=== PATIENT | female | born 1940 | race Caucasian/White ===

== ENCOUNTER → 2016-11-12 | Outpatient (CLI) | payer MEDICARE, OTHER ==
--- NOTE | 2016-11-12 11:19 | MM ---
Reason for exam: additional evaluation requested from prior study. Last mammogram was performed 1 year ago. History: Patient is postmenopausal, has history of breast cancer at age 63, and had previous chest radiation therapy at age 63. Excisional biopsy of the left breast, 2003. Malignant lumpectomy of the left breast, 2003. Radiation therapy of the left breast, 2003. Took tamoxifen for 5 years beginning at age 63. Physical Findings: Nurse did not find any significant physical abnormalities on exam. MG Diagnostic Mammo w CAD FE Bilateral CC and MLO view(s) were taken. Prior study comparison: November 12, 2015, bilateral MG diagnostic mammo w CAD FE. November 10, 2014, bilateral MG diagnostic mammo w CAD FE. There are scattered fibroglandular densities. Finding #1: There is a high density mass in the posterior position of the left breast, consistent with previous surgery/biopsy. Finding #2: There are typically stable benign calcifications in both breasts. These results were verbally communicated with the patient and result sheet given to the patient on 11/12/16. ASSESSMENT: Benign, BI-RAD 2 RECOMMENDATION: Follow-up diagnostic mammogram of both breasts in 1 year.
== END | disposition home or self-care (01) ==
LOC: RADMAMWWP 09:46
PROVIDERS: ATTEND Surgery
DX: Z85.3 Personal history of malignant neoplasm of breast (principal)

== ENCOUNTER → 2017-12-17 | Outpatient (CLI) | payer MEDICARE, OTHER ==
--- NOTE | 2017-12-17 09:16 | MM ---
Reason for exam: additional evaluation requested from prior study. Last mammogram was performed 1 year and 1 month ago. History: Patient is postmenopausal, has history of breast cancer at age 63, and had previous chest radiation therapy at age 63. Excisional biopsy of the left breast, 2003. Malignant lumpectomy of the left breast, 2003. Radiation therapy of the left breast, 2003. Took tamoxifen for 5 years beginning at age 63. Physical Findings: Nurse did not find any significant physical abnormalities on exam. MG Diagnostic Mammo w CAD FE Bilateral CC and MLO view(s) were taken. Prior study comparison: November 12, 2016, bilateral MG diagnostic mammo w CAD FE. November 12, 2015, bilateral MG diagnostic mammo w CAD FE. There are scattered fibroglandular densities. Stable benign calcifications. Stable post operative changes in the left breast. No significant new findings when compared with previous films. These results were verbally communicated with the patient and result sheet given to the patient on 12/17/17. ASSESSMENT: Benign, BI-RAD 2 RECOMMENDATION: Follow-up diagnostic mammogram of both breasts in 1 year.
== END ==
LOC: RADMAMWWP 08:00
PROVIDERS: ATTEND Family Medicine
DX: Z08 Encounter for follow-up examination after completed treatment for malignant neoplasm (principal); Z85.3 Personal history of malignant neoplasm of breast
CPT/HCPCS: 77066

== ENCOUNTER → 2018-12-20 | Outpatient (CLI) | payer MEDICARE, OTHER ==
--- NOTE | 2018-12-20 10:18 | MM ---
Reason for exam: additional evaluation requested from prior study. Last mammogram was performed 1 year ago. History: Patient is postmenopausal, has history of breast cancer at age 63, and had previous chest radiation therapy at age 63. Excisional biopsy of the left breast, 2003. Malignant lumpectomy of the left breast, 2003. Radiation therapy of the left breast, 2003. Took tamoxifen for 5 years beginning at age 63. Physical Findings: Nurse did not find any significant physical abnormalities on exam. MG Diagnostic Mammo w CAD FE Bilateral CC, MLO, and XCCL view(s) were taken. Prior study comparison: December 17, 2017, bilateral MG diagnostic mammo w CAD FE. November 12, 2016, bilateral MG diagnostic mammo w CAD FE. Finding #1: Architectural distortion in the left breast consistent with previous biopsy. Finding #2: There are typically benign stable calcifications in both breasts. There is skin thickening left breast, stable. These results were verbally communicated with the patient and result sheet given to the patient on 12/20/18. ASSESSMENT: Benign, BI-RAD 2 RECOMMENDATION: Routine screening mammogram of both breasts in 1 year.
== END | disposition home or self-care (01) ==
LOC: RADMAMWWP 09:10
PROVIDERS: ATTEND Family Medicine
DX: Z85.3 Personal history of malignant neoplasm of breast (principal)
CPT/HCPCS: 77066

== ENCOUNTER → 2019-12-09 | Outpatient (CLI) | payer MEDICARE, OTHER | END | disposition home or self-care (01) | LOC: LABWHC1 10:14 | PROVIDERS: ATTEND Family Medicine | DX: U07.1 COVID-19 (principal) ==

== ENCOUNTER → 2019-12-29 | Outpatient (CLI) | payer MEDICARE, OTHER ==
--- NOTE | 2019-12-29 14:51 | MM ---
Reason for exam: additional evaluation requested from prior study. Last mammogram was performed 1 year ago. History: Patient is postmenopausal, has history of breast cancer at age 63, and had previous chest radiation therapy at age 63. Excisional biopsy of the left breast, 2003. Malignant lumpectomy of the left breast, 2003. Radiation therapy of the left breast, 2003. Took tamoxifen for 5 years beginning at age 63. Physical Findings: Nurse did not find any significant physical abnormalities on exam. MG Diagnostic Mammo w CAD FE Bilateral CC and MLO view(s) were taken. Prior study comparison: December 20, 2018, bilateral MG diagnostic mammo w CAD FE. December 17, 2017, bilateral MG diagnostic mammo w CAD FE. There are scattered fibroglandular densities. Post surgical and post therapy changes left breast. No significant new findings when compared with previous films. These results were verbally communicated with the patient and result sheet given to the patient on 12/29/19. ASSESSMENT: Benign, BI-RAD 2 RECOMMENDATION: Follow-up diagnostic mammogram of both breasts in 1 year.
== END | disposition home or self-care (01) ==
LOC: RADMAMWWP 12:32
PROVIDERS: ATTEND Family Medicine
DX: Z85.3 Personal history of malignant neoplasm of breast (principal)
CPT/HCPCS: 77066

== ENCOUNTER → 2020-12-31 | Outpatient (CLI) | payer MEDICARE, OTHER ==
--- NOTE | 2021-01-01 10:05 | MM ---
Reason for exam: additional evaluation requested from prior study. Last mammogram was performed 1 year ago. History: Patient is postmenopausal, has history of breast cancer at age 63, and had previous chest radiation therapy at age 63. Excisional biopsy of the left breast, 2003. Malignant lumpectomy of the left breast, 2003. Radiation therapy of the left breast, 2003. Took tamoxifen for 5 years beginning at age 63. Physical Findings: Nurse did not find any significant physical abnormalities on exam. MG Diagnostic Mammo w CAD FE Bilateral CC and MLO view(s) were taken. Prior study comparison: December 29, 2019, bilateral MG diagnostic mammo w CAD FE. December 20, 2018, bilateral MG diagnostic mammo w CAD FE. There are scattered fibroglandular densities. Left post operative change similar. These results were verbally communicated with the patient and result sheet given to the patient on 12/31/20. ASSESSMENT: Benign, BI-RAD 2 RECOMMENDATION: Routine screening mammogram of both breasts in 1 year.
== END | disposition home or self-care (01) ==
LOC: RADMAMWWP 14:30
PROVIDERS: ATTEND Family Medicine
DX: R92.8 Other abnormal and inconclusive findings on diagnostic imaging of breast (principal); Z78.0 Asymptomatic menopausal state; Z80.3 Family history of malignant neoplasm of breast
CPT/HCPCS: 77066

== ENCOUNTER → 2021-03-01 | Outpatient (CLI) | payer MEDICARE, OTHER ==
--- NOTE | 2021-03-01 13:54 | MR ---
EXAMINATION TYPE: MR knee RT wo con DATE OF EXAM: 03/01/2021 COMPARISON: None HISTORY: Right knee pain x 2 mos. TECHNIQUE: Multiplanar, multisequence imaging of the Right knee is performed without IV contrast. FINDINGS: MEDIAL MENISCUS: Myxoid degeneration posterior horn medial meniscus. Increased signal extends to the periphery of the meniscus. Microtear is difficult to exclude. Anterior horn is intact. LATERAL MENISCUS: Oblique tear posterior horn lateral meniscus. Anterior horn is intact. CRUCIATE LIGAMENTS: The anterior and posterior cruciate ligaments are intact and unremarkable. COLLATERAL LIGAMENTS: The medial collateral ligament and lateral collateral ligament complex are inta ct and unremarkable. EXTENSOR MECHANISM: Visualized quadriceps and patellar tendons are intact. EFFUSION: No significant suprapatellar joint effusion. POPLITEAL CYST: Popliteal cyst measuring 7.4 cm in length by 1.0 cm. TRICOMPARTMENT SPACES: Moderate narrowing medial tibiofemoral joint space and patellofemoral joint sp aces. Mild subchondral cyst formation seen. CARTILAGE: Intact BONE MARROW SIGNAL: No focal abnormal marrow signal is appreciated. OTHER: No additional significant abnormality is appreciated. IMPRESSION: 1.Oblique tear posterior horn lateral meniscus 2.Myxoid degeneration posterior horn medial meniscus. Increased signal extends to the periphery of th e meniscus. Microtear is difficult to exclude. 3. Taylor's cyst. 4. Changes of osteoarthritis.
== END | disposition home or self-care (01) ==
LOC: RADMRIMAIN 12:14
PROVIDERS: ATTEND Orthopaedic Surgery
DX: M23.351 Other meniscus derangements, posterior horn of lateral meniscus, right knee (principal); M17.11 Unilateral primary osteoarthritis, right knee; M71.21 Synovial cyst of popliteal space [Baker], right knee

== ENCOUNTER 2021-03-14 09:27 | Day surgery (SDC) | payer MEDICARE, OTHER ==
[2021-03-13 15:03] VITALS: BMI 24.2
--- NOTE | 2021-03-13 17:27 | HP ---
HISTORY AND PHYSICAL DATE OF SURGERY: 03/14/2021 Nikole Salamanca is an 80-year-old patient seen with progressive right knee pain. We discussed options for treatment. She elected to proceed with arthroscopy. Consent was obtained. PAST MEDICAL HISTORY: Hypertension. PAST SURGICAL HISTORY: Hysterectomy, herniorrhaphy, knee arthroscopy. DAILY MEDICATIONS: Aspirin, Valium, tramadol. ALLERGIES: NONE. SOCIAL HISTORY: She denies current tobacco use. PHYSICAL EVALUATION OF THE RIGHT KNEE: Range of motion is negative 2/3 to 100. Mild effusion. Tenderness lateral joint line. Positive lateral Piero's. Ligaments stable. Hip rotation without pain. Distal neurovascular exam intact. IMAGING: Radiographs of that right knee revealed moderate osteoarthritic changes. MRI right knee revealed lateral meniscal tear and popliteal cyst. IMPRESSION: Internal derangement of right knee with lateral meniscal tear. PLAN: Right knee arthroscopy with partial lateral meniscectomy and debridement. MMODL / IJN: [id number] /
[2021-03-14] MEDS ORDERED: ONDANSETRON 4 MG/2 ML VIAL ONE (10:34)
[2021-03-14] MEDS ORDERED: LIDOCAINE 1% (10MG/ML) FOR IV START INTRADERMA ONE (10:58)
[2021-03-14] MEDS ORDERED: ONDANSETRON 4 MG/2 ML VIAL IVP ONE (10:59)
[2021-03-14] MEDS ORDERED: LACTATED RINGERS 1,000 ML IV ONE (10:59)
[2021-03-14] MEDS ORDERED: DEXAMETHASONE SOD PHOSPHATE 4 MG/ML 1 ML VIAL IV ONE (11:01)
[2021-03-14] MEDS ORDERED: BUPIVACAINE (PF) 0.25% 30 ML VIAL INTRAARTIC ONE (11:45)
[2021-03-14] MEDS ORDERED: LIDOCAINE 1% INJ 10MG/ML (20 ML MDV) ONE (11:50)
[2021-03-14] MEDS ORDERED: fentaNYL (PF) 50 MCG/ML 2 ML AMP ONE (11:50)
[2021-03-14] MEDS ORDERED: PROPOFOL 10 MG/ML 20 ML VIAL IV ONE (11:50)
--- NOTE | 2021-03-14 12:47 | P.OP ---
Date of Procedure: 03/14/21 Preoperative Diagnosis: Internal derangement right knee Postoperative Diagnosis: 1. Tear lateral meniscus knee 2. 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 Loose body right knee 4. Reactive synovitis medial, lateral and suprapatellar compartments right knee Procedure(s) Performed: 1. Arthroscopic partial lateral meniscectomy right knee 2. Arthroscopic chondroplasty lateral femoral condyle right knee 3. Arthroscopic removal loose body 4. Arthroscopic partial synovectomy medial, lateral and suprapatellar compartments right knee Anesthesia: EPHRAIMA, local Surgeon: Leonard Gage Estimated Blood Loss (ml): 7 Pathology: none sent Condition: stable Disposition: PACU Indications for Procedure: 80-year-old patient seen with progressive right knee pain. After treatment options were discussed, she elected to proceed with arthroscopy. Operative Findings: See description of procedure Description of Procedure: Patient was taken to the operative suite. Patient underwent a general anesthetic by the department of anesthesia. Patient was given preoperative antibiotics. The right lower extremity was placed in a well-padded arthroscopic leg plaza. The right leg was prepped and draped in the normal sterile orthopedic fashion. A lateral parapatellar and suprapatellar incision was made. Trochars were inserted. Arthroscopy was initiated. Suprapatellar pouch revealed diffuse thick reactive synovitis. The patellofemoral joint appeared to articulate congruently. There was grade 1/2 chondromalacia of the patella with no osteochondral tears present. The scope was guided into the medial gutter. No loose bodies or plica were identified. The scope was then guided into the medial compartment. A medial parapatellar incision was made. Trocar inserted followed by probe. The medial meniscus appeared intact with no significant tear. There were grade 1 chondromalacia changes of the medial compartment with no tears. There was some thick reactive synovitis anteriorly. I introduced a motorized shaver and I performed a partial synovectomy. Shaver was removed. There was good decompression of the synovitis. Scope and probe were then guided into the intercondylar notch. Cruciates were identified, probed and found to be stable. The scope and probe were then guided into lateral compartment. Lateral meniscus revealed complex tears involving the anterior horn, mid body and posterior horn. There were grade 3, she changes of the lateral compartment with some osteochondral tears involving the femoral condyle. There was thick reactive size anteriorly. Upon exploring that posterior horn lateral meniscus I encountered a loose body. I introduced my loose body forceps and retrieve that without difficulty. I now performed a partial lateral meniscectomy getting down to stable meniscal tissue. I performed a chondroplasty of the lateral femoral condyle getting down to stable osteochondral tissue. I performed a partial synovectomy decompressing the thick reactive synovitis. The shaver was removed. The residual meniscus was probed and found to be stable. The residual osteochondral surface was stable. There was good decompression of the synovitis. The scope was in guided back into the suprapatellar compartment. I introduced a motorized shaver into the super patellar compartment. I debrided some piecemeal fragments of meniscus that I encountered. I performed a partial synovectomy decompressing the thick reactive synovitis within the super patellar compartment. The shaver was removed. There was good decompression of the synovitis. I took one more look on the entire knee, no residual debris. Instruments were now removed from the joint. The joint was infiltrated with .25% Marcaine. Steri-Strips were applied to the portal sites. Sterile dressings were applied. The patient was placed into a AYLEEN hose. No tourniquet was utilized. The patient was awakened, transferred to a bed and taken to recovery stable satisfactory condition.
[2021-03-14 12:48] VITALS: TEMP 96.8
[2021-03-14] MEDS: HYDROmorphone 0.5 MG/0.5 ML SYRINGE IVP ONE ×2 (12:52→13:10)
[2021-03-14] MEDS ORDERED: KETOROLAC 15 MG/ML 1 ML VIAL ONE (13:10)
[2021-03-14 13:17] VITALS: RESP 16
[2021-03-14 13:56] VITALS: BP 148/80; PULSE 72
== END 2021-03-14 14:23 | disposition home or self-care (01) ==
LOC: OR 09:27
PROVIDERS: ATTEND Orthopaedic Surgery
DX: M23.241 Derangement of anterior horn of lateral meniscus due to old tear or injury, right knee (principal); M23.251 Derangement of posterior horn of lateral meniscus due to old tear or injury, right knee; M94.261 Chondromalacia, right knee; M71.21 Synovial cyst of popliteal space [Baker], right knee; M65.861 Other synovitis and tenosynovitis, right lower leg; I10 Essential (primary) hypertension; Z79.82 Long term (current) use of aspirin; Z79.899 Other long term (current) drug therapy; Z79.52 Long term (current) use of systemic steroids; Z90.710 Acquired absence of both cervix and uterus; Z85.3 Personal history of malignant neoplasm of breast
CPT/HCPCS: 29876; 29881; J1100; J2405; J0690; J2001; J3010; J1885; J2704; J1170

== ENCOUNTER 2021-10-14 08:07 | Day surgery (SDC) | payer MEDICARE, OTHER ==
[2021-10-10 15:59] VITALS: BMI 24.2
--- NOTE | 2021-10-13 10:39 | HP ---
HISTORY AND PHYSICAL DATE OF SURGERY: 10/14/2021 Nikole Salamanca is an 81-year-old patient seen with symptomatic right knee osteoarthritis. We discussed options for treatment. She elected to proceed with right total knee arthroplasty. Consent was obtained. Clearance was provided by Dr. Villeda. PAST MEDICAL HISTORY: Hypertension. PAST SURGICAL HISTORY: Hysterectomy, breast cancer surgery, herniorrhaphy. DAILY MEDICATIONS: Aspirin, tramadol. ALLERGIES: NONE. SOCIAL HISTORY: She denies current tobacco use. PHYSICAL EVALUATION OF THE RIGHT KNEE: Her range of motion is negative 4/5 to 90. Lateral joint line tenderness, lateral crepitus. Ligaments stable. Hip rotation without pain. Distal neurovascular exam intact. Radiographs of the right knee reveal severe lateral compartment osteoarthritis. IMPRESSION: 1. Right knee osteoarthritis. 2. Hypertension. PLAN: Right total knee arthroplasty. MMODL / IJN: [id number] /
[~2021-10-14 08:07] MED LIST: ACETAMINOPHEN TAB 500 MG TAB PO PRN; MELOXICAM 7.5 MG TAB PO PRN; TRANEXAMIC ACID IN NACL,ISO-OS 1,000 MG in SALINE 1 100ML.BAG IVPB PRN
[2021-10-14] MEDS ORDERED: ONDANSETRON 4 MG/2 ML VIAL ONE ×2 (08:34→14:34)
[2021-10-14] MEDS ORDERED: LACTATED RINGERS 1,000 ML IV ONE ×4 (10:00→15:45)
[2021-10-14] MEDS ORDERED: ceFAZolin 1,000 MG in SODIUM CHLORIDE 0.9% 1,000 ML IRRIGATION ONE (10:20)
[2021-10-14] MEDS ORDERED: NALOXONE 0.4 MG/ML 1 ML VIAL IV PRN (11:41)
[2021-10-14] MEDS ORDERED: HYDROcodone/APAP 5-325MG 1 EACH TAB PO PRN ×2 (11:41)
[2021-10-14] MEDS ORDERED: HYDROmorphone 0.5 MG/0.5 ML SYRINGE IVP PRN ×3 (11:41→13:47)
[2021-10-14] MEDS ORDERED: ONDANSETRON 4 MG/2 ML VIAL IVP PRN (11:41)
[2021-10-14] MEDS ORDERED: HYDROmorphone 0.2 MG/1 ML SYRINGE IVP PRN (11:41)
[2021-10-14] MEDS ORDERED: ROPIVACAINE 0.2%-NS ON-Q PUMP 1,090 MG, EMPTY PAIN BALL 1 EACH MISCELLANE PRN (11:51)
--- NOTE | 2021-10-14 11:53 | P.ANPRN ---
Procedure Note - Anesthesia - Nerve Block Performed Right Adductor Canal Infusion Time Out Performed: Yes Date of Procedure: 10/14/21 Procedure Start Time: : Procedure Stop Time: Location of Patient: PreOp Indication: Requested by Surgeon Specifically requested for management of pain by DrLeon: Leonard Gage Sedation Type: Sedate with meaningful contact maintained Preparation: Sterile Prep, Sterile Dressing Position: Supine Catheter: Indwelling Needle Types: Pajunk Needle Gauge: 18 Ultrasound used to visualize needle placement: Yes Ultrasound used to observe medication spread: Yes Injectate: 0.5% Ropivacaine (see comment for volume) (15 ml + 15 ml NS) Blood Aspirated: No Pain Paresthesia on Injection Noted: No Resistance on Injection: Normal Image Stored and Saved: Yes Events: Uneventful and Well Tolerated
--- NOTE | 2021-10-14 11:55 | P.ANPRN ---
Procedure Note - Anesthesia - Nerve Block Performed Right iPack Single Time Out Performed: Yes Date of Procedure: 10/14/21 Procedure Start Time: Procedure Stop Time: Location of Patient: PreOp Indication: Requested by Surgeon Specifically requested for management of pain by DrLeon: Leonard Gage Sedation Type: Sedate with meaningful contact maintained Preparation: Sterile Prep Position: Left Lateral Needle Types: Pajunk Needle Gauge: 21 Ultrasound used to visualize needle placement: Yes Ultrasound used to observe medication spread: Yes Injectate: 0.5% Ropivacaine (see comment for volume) (15 ml + 10 ml NS +4 mg Dexamethasone) Blood Aspirated: No Pain Paresthesia on Injection Noted: No Resistance on Injection: Normal Image Stored and Saved: Yes Events: Uneventful and Well Tolerated
[2021-10-14] MEDS ORDERED: HYDROmorphone 0.5 MG/0.5 ML SYRINGE IVP ONE ×4 (12:07→12:41)
--- NOTE | 2021-10-14 12:37 | OP ---
OPERATIVE REPORT DATE OF SERVICE: October 14, 2021. PREOPERATIVE DIAGNOSIS: Symptomatic right knee osteoarthritis. POSTOPERATIVE DIAGNOSIS: Symptomatic right knee osteoarthritis. PROCEDURE: Right total knee arthroplasty. SURGEON: Dr. Gage. ASSIST: Noel METZGER. ANESTHESIA: General with preoperative adductor canal catheter and Hypaque block. ESTIMATED BLOOD LOSS: 55 mL. COMPLICATIONS: None. IMPLANTS: Utilized: 1. DePuy Attune size 4 cruciate-retaining cemented femur. 2. DePuy Attune size 4 fixed bearing cemented tibial base plate. 3. DePuy Attune size 4 fixed bearing cruciate retaining, 5 mm polyethylene tibial insert. 4. DePuy Attune 35 mm all-polyethylene cemented patella. INDICATIONS: Nikole Salamanca is an 81-year-old patient seen with symptomatic right knee osteoarthritis. We discussed options for treatment. She elected to proceed with right total knee arthroplasty. Consent regarding the procedure was obtained. The patient received a preoperative adductor canal catheter and Hypaque block by the Department of Anesthesia for postoperative pain management. She was taken to the operative suite. She underwent general anesthetic by Department of Anesthesia. She received preoperative IV antibiotics and TXA. A well-padded tourniquet placed proximally on the right lower extremity. Right lower extremity was prepped and draped in a normal sterile orthopedic fashion. The extremity was elevated, tourniquet insufflated to 300. I now made a standard anterior incision sharply through skin. Dissection was taken down to the extensor mechanism. A medial arthrotomy was performed. The patella was everted. Knee flex was advanced, osteoarthritis involving the lateral patellofemoral compartments. Intramedullary distal drill hole was made through the femur. Our distal femoral cutting guide was positioned. Distal femoral cut was made. We now placed retractors on the proximal tibia. Proximal tibial cutting jig was positioned, proximal tibial cut was made. We now placed our femoral sizing guide over the distal femur and secured it. Appropriate pin holes were then created. We then used a size 4 4 in 1 cutting block over the distal femur, we made appropriate chamfer and anterior and posterior cuts. We now made our sulcus cut. We now took the knee into full extension and debrided any residual meniscus and debrided any residual osteophytes. We then placed our trial components in position. Took it through full range of motion. We had full extension, full flexion. Good intraoperative stability. The patella was everted. A flush cut was made with patellar quadriceps tendon. We now placed a 35 mm patellar cutting guide and appropriate peg hole drills were made. I now trialed a patellar component. Took the knee through range of motion. Patella tracked well. We again had a good full range of motion of the knee with good intraoperative stability. We marked off the appropriate rotation of the tibia. Lug holes were drilled through the femoral guide. All trial components were removed. We now opened up all appropriate sized implants. The wound was irrigated copiously with pulse lavage mechanical irrigation. We achieved additional hemostasis via electrocautery. Aquamantys. We mixed antibiotic methylmethacrylate. Once methylmethacrylate was ready, the knee was flexed. We dried out the joint. We now submitted our tibial tray, removing any excess methylmethacrylate. We then clicked in our polyethylene liner. We then cemented our femoral component, made sure it was well-seated, removed any excess methylmethacrylate. We took the knee into full extension, back in flexion, making sure we had removed any excess methylmethacrylate. We now cemented down our patellar component. Utilized a clamp to secure that. The knee was held full extension. Patella clamp was positioned until the methylmethacrylate had hardened. Once it hardened, the patellar clamp was removed. The tourniquet was released. We achieved additional hemostasis via electrocautery. We had good hemostasis. We irrigated the wound out copiously with pulse lavage. Mechanical irrigation. We repaired the extensor mechanism with #1 Ethibond. We checked the repair and it was stable. The subcutaneous soft tissues were repaired in layers with 2-0 Vicryl and subcuticular running suture. We used Ethibond for skin closure. Sterile dressings were applied. The patient was then awakened and transferred to recovery in stable condition. Noel METZGER, assisted in all aspects of the procedure. MMODL / IJN: [id number] /
[2021-10-14] MEDS ORDERED: IV FLUID CONTINUATION 500 ML IV ONE (13:41)
[2021-10-14] MEDS ORDERED: MIDAZOLAM 2 MG/2 ML VIAL IV PRN (13:47)
[2021-10-14] MEDS ORDERED: DEXAMETHASONE SOD PHOSPHATE 4 MG/ML 1 ML VIAL IV ONE (13:47)
[2021-10-14] MEDS ORDERED: ONDANSETRON 4 MG/2 ML VIAL IVP ONE ×2 (13:47→14:35)
[2021-10-14] MEDS ORDERED: LIDOCAINE 1% (10MG/ML) FOR IV START INTRADERMA PRN (13:47)
--- NOTE | 2021-10-14 14:16 | XR ---
EXAMINATION TYPE: XR knee limited RT DATE OF EXAM: 10/14/2021 COMPARISON: NONE TECHNIQUE: Two views submitted HISTORY: Post op FINDINGS: There is a prosthetic knee in near anatomic alignment. There is soft tissue edema and emphysema. IMPRESSION: 1. Postoperative change. Appears in near-anatomic alignment
[2021-10-14] MEDS ORDERED: HYDROcodone/APAP 7.5-325MG 1 EACH TAB PO ONE (14:51)
[2021-10-14] MEDS ORDERED: HYDROcodone/APAP 7.5-325MG 1 EACH TAB ONE (14:53)
[2021-10-14] MEDS: DILTIAZEM CD 240 MG CAP.ER.24H PO SCH (22:43)
[2021-10-15] MEDS ORDERED: ACETAMINOPHEN TAB 325 MG TAB ONE (00:57)
[2021-10-15] MEDS: ACETAMINOPHEN TAB 325 MG TAB PO PRN ×2 (00:59→05:57)
[2021-10-15] MEDS: LACTATED RINGERS 1,000 ML IV SCH ×2 (02:22→14:11)
--- NOTE | 2021-10-15 07:05 | P.PN ---
Progress Note - Text Progress Note Date: 10/15/21 Postoperative day # 1 status post total knee arthroplasty, and adductor canal catheter placed for postoperative analgesia, currently at ropivacaine 0.2% 8 mL per hour and continuous infusion, visual analogue scale is 3-4/10, patient using oral pain medication for breakthrough pain. Assessment and plan= Acute postoperative pain, adductor canal catheter for pain control, pain is well controlled we'll continue the same management.
[2021-10-15] MEDS ORDERED: PROCHLORPERAZINE INJ 10 MG/2 ML VIAL IVP PRN (08:46)
[2021-10-15] MEDS: traMADol 50 MG TAB PO SCH ×3 (08:51→17:28)
--- NOTE | 2021-10-15 09:27 | P.CONS ---
History of Present Illness - Reason for Consult Consult date: 10/15/21 - Chief Complaint Right knee pain - History of Present Illness 8 this is an 81-year-old white female who is postop day #1 for right knee arthroplasty. Complaining of postoperative nausea. No fever or chills. No nausea or vomiting. History of hypertension which is stable Review of Systems Constitutional: Denies chills, Denies fever Eyes: denies blurred vision, denies pain Ears, nose, mouth and throat: Denies headache, Denies sore throat Cardiovascular: Denies chest pain, Denies shortness of breath Past Medical History Past Medical History: Cancer, Hypertension, Osteoarthritis (OA) Additional Past Medical History / Comment(s): LEFT BREAST CA 2007 w/ radiation History of Any Multi-Drug Resistant Organisms: None Reported Past Surgical History: Breast Surgery, Hernia Repair, Hysterectomy Additional Past Surgical History / Comment(s): lumpectomy left breast,partial hyst Past Anesthesia/Blood Transfusion Reactions: No Reported Reaction Past Psychological History: No Psychological Hx Reported Smoking Status: Former smoker Past Alcohol Use History: Rare Additional Past Alcohol Use History / Comment(s): quit smoking , smoked approx 20 yrs Past Drug Use History: None Reported - Past Family History Mother Family Medical History: No Reported History Medications and Allergies Home Medications Medication Instructions Recorded Confirmed Type Acetaminophen [Tylenol Arthritis] 650 mg PO Q8H PRN 03/13/21 10/10/21 History Diltiazem HCl [Diltiazem HCl 24Hr 240 mg PO HS 03/13/21 10/10/21 History ER (Cd)] Multivitamins, Thera [Multivitamin 1 tab PO DAILY 03/13/21 10/10/21 History (formulary)] RX: Aspirin 81 mg PO DAILY 03/13/21 10/10/21 History Docusate [Colace] 100 mg PO DAILY #21 capsule 10/14/21 Rx HYDROcodone/APAP 5-325MG [[place] 1 tab PO Q6HR PRN #28 tab 10/14/21 Rx 5-325] RX: Aspirin [Adult Low Dose 81 mg PO BID #60 tab 10/14/21 Rx Aspirin EC] ondansetron HCL [Zofran] 8 mg PO Q12HR PRN #21 tab 10/14/21 Rx Allergies Allergy/AdvReac Type Severity Reaction Status Date / Time morphine AdvReac Nausea & Verified 10/10/21 14:27 Vomiting Physical Exam Vitals: Vital Signs Temp Pulse Pulse Resp BP Pulse Ox 10/15/21 08:00 97.9 F 81 16 121/75 95 10/15/21 02:00 97.9 F 89 110/69 96 10/14/21 21:49 118/78 10/14/21 20:00 97.7 F 98 18 114/67 95 10/14/21 18:22 70 16 135/58 95 10/14/21 18:03 82 16 125/55 95 10/14/21 17:33 70 16 110/57 96 10/14/21 17:03 74 16 129/61 97 10/14/21 16:45 87 16 125/77 96 10/14/21 16:18 76 16 122/76 96 10/14/21 16:01 14 94 L 10/14/21 16:00 74 12 106/65 84 L 10/14/21 15:14 77 16 142/80 95 10/14/21 14:44 74 16 138/80 95 10/14/21 14:14 80 16 133/80 96 10/14/21 13:41 77 16 107/73 90 L 10/14/21 13:16 69 16 126/61 97 10/14/21 13:00 71 16 128/58 97 10/14/21 12:46 66 16 131/61 97 10/14/21 12:32 70 16 137/58 97 10/14/21 12:16 76 16 151/67 97 10/14/21 12:00 86 16 112/71 97 10/14/21 11:55 97.2 F L 97 16 138/85 97 Intake and Output 10/14/21 10/15/21 10/15/21 22:59 06:59 14:59 Intake Total 440 Output Total 600 1850 Balance -600 -1410 Intake: Intake, IV Titration 240 Amount Lactated Ringers 1,000 ml 240 @ 20 mls/hr IV .Q24H FABIEN Rx#:[id number] Oral 200 Output: Urine 600 1850 Straight 600 600 Other: # Voids 2 # Bowel Movements 0 Weight 68.039 kg - Constitutional General appearance: no acute distress - EENT Eyes: EOMI - Neck Neck: no lymphadenopathy - Respiratory Respiratory: bilateral: CTA - Cardiovascular Rhythm: regular Heart sounds: normal: S1, S2 Abnormal Heart Sounds: no S3 Gallop - Gastrointestinal General gastrointestinal: soft, no tenderness Assessment and Plan (1) Postoperative nausea Current Visit: Yes Status: Acute Code(s): R11.0 - NAUSEA; Z98.890 - OTHER SPECIFIED POSTPROCEDURAL STATES SNOMED Code(s): 21688980 (2) Osteoarthritis of right knee Current Visit: Yes Status: Acute Code(s): M17.11 - UNILATERAL PRIMARY OSTEOARTHRITIS, RIGHT KNEE SNOMED Code(s): 754213065298159 Plan: Continue Zofran. Compazine given. Reconcile medications. We'll continue to follow with surgery. Postoperative pulmonary toilet with ambulation today. Appreciate consult
[2021-10-15] MEDS: ASPIRIN 81 MG PO SCH (10:29)
[2021-10-15] MEDS: MULTIVITAMINS, THERA 1 EACH TAB PO SCH (10:30)
--- NOTE | 2021-10-15 10:53 | P.PN ---
Subjective Progress Note Date: 10/15/21 Principal diagnosis: Status post right total knee arthroplasty Patient is evaluated today at bedside. Patient was kept overnight due to severe nausea attempting to ambulate. He states that it is slightly improved today. We have adjusted the oral pain medication. She did do well with physical therapy. She currently denies any headaches, lightheadedness, chest pain or shortness of breath. Objective - Vital Signs Vital signs: Vital Signs Temp 97.9 F 10/15/21 08:00 Pulse 81 10/15/21 08:00 Resp 16 10/15/21 08:00 BP 121/75 10/15/21 08:00 Pulse Ox 95 10/15/21 08:00 Intake & Output 10/14/21 10/15/21 10/15/21 18:59 06:59 18:59 Intake Total 2351 440 Output Total 55 2450 Balance 2295 Weight 68.039 kg 68.039 kg Intake: IV 2351 Intake, IV Titration 240 Amount Lactated Ringers 1,000 ml 240 @ 20 mls/hr IV .Q24H FABIEN Rx#:[id number] Oral 200 Output: Urine 2450 Straight 1200 Estimated Blood Loss 55 Other: # Voids 2 # Bowel Movements 0 - Exam Right lower extremity: Incision is clean, dry, and intact. The foam dressing is in good condition. There is minimal soft tissue swelling and ecchymosis surrounding the medial and lateral aspects of the incision. Calf is soft, no tenderness with palpation. Plantar flexion, dorsiflexion, EHL, FHL are intact. Sensory exam to light touch throughout the extremity is intact, dorsal pedis pulses 2+. Assessment and Plan Assessment: Postoperative day 1 status post right total knee arthroplasty Plan: Pain control, utilize tramadol 50 mg every 6 hours as needed. Discussed using [id number] Tylenol DVT prophylaxis, aspirin 81 mg twice a day Wound care instructions were discussed with patient, this including icing and elevating and showering Home physical therapy and nursing Medical recommendations Discharge planning: Patient symptoms improve with regards nausea, plan for discharge home today Time with Patient: Less than 30
[2021-10-15] MEDS: PROCHLORPERAZINE 5 MG TAB PO PRN (17:51)
[2021-10-15] MEDS ORDERED: TAMSULOSIN 0.4 MG CAP.ER.24H PO STA (18:41)
[2021-10-15] MEDS: TAMSULOSIN 0.4 MG CAP.ER.24H PO SCH (21:09)
[2021-10-15] MEDS: DILTIAZEM CD 240 MG CAP.ER.24H PO SCH (21:09)
[2021-10-16] MEDS: traMADol 50 MG TAB PO PRN ×2 (00:29→10:35)
[2021-10-16] MEDS: PROCHLORPERAZINE 5 MG TAB PO PRN ×2 (02:42→11:01)
[2021-10-16] MEDS: LACTATED RINGERS 1,000 ML IV SCH (07:17)
[2021-10-16] MEDS: MULTIVITAMINS, THERA 1 EACH TAB PO SCH (07:39)
[2021-10-16] MEDS: ASPIRIN 81 MG PO SCH (07:40)
[2021-10-16] MEDS: TAMSULOSIN 0.4 MG CAP.ER.24H PO SCH (07:40)
[2021-10-16 08:33] VITALS: RESP 16
--- NOTE | 2021-10-16 08:47 | P.PN ---
Subjective Progress Note Date: 10/16/21 Principal diagnosis: Knee arthroplasty The patient is complaining some mild nausea but is ready to go home. No voiding difficulties. Pain is nominal Objective - Vital Signs Vital signs: Vital Signs Temp 98.1 F 10/16/21 00:43 Pulse 89 10/16/21 00:43 Resp 16 10/16/21 08:29 BP 125/82 10/16/21 00:43 Pulse Ox 94 L 10/16/21 00:43 Intake & Output 10/15/21 10/16/21 10/16/21 18:59 06:59 18:59 Intake Total 350 200 Output Total 700 600 Balance -700 -250 200 Intake: Oral 350 200 Output: Urine 500 600 Post Void Residual 200 Other: # Voids 2 # Bowel Movements 0 - Constitutional General appearance: Present: cooperative - EENT Eyes: Absent: abnormal pupil - Neck Neck: Absent: lymphadenopathy - Respiratory Respiratory: bilateral: CTA - Cardiovascular Rhythm: regular Heart sounds: normal: S1, S2 Abnormal Heart Sounds: Absent: S3 Gallop - Gastrointestinal General gastrointestinal: Present: soft. Absent: tenderness Assessment and Plan (1) Postoperative nausea Current Visit: Yes Status: Acute Code(s): R11.0 - NAUSEA; Z98.890 - OTHER SPECIFIED POSTPROCEDURAL STATES SNOMED Code(s): 42255399 (2) Osteoarthritis of right knee Current Visit: Yes Status: Acute Code(s): M17.11 - UNILATERAL PRIMARY OSTEOARTHRITIS, RIGHT KNEE SNOMED Code(s): 195829634463549 Plan: Anticipate discharge today
--- NOTE | 2021-10-16 08:52 | P.PN ---
Subjective Progress Note Date: 10/16/21 Principal diagnosis: Status post right total knee arthroplasty Patient was evaluated today at bedside, she is resting comfortably. We did attempt to discharge yesterday, she was having some urinary retention. She had a couple different instances utilizing straight cath, she was also started on 0.4 mg Flomax twice a day. Patient is doing a lot better today. She's been evaluated by internal medicine. She is ready to be discharged home. She currently denies any headaches, lightheadedness, chest pain or shortness of breath. Objective - Vital Signs Vital signs: Vital Signs Temp 98.1 F 10/16/21 00:43 Pulse 89 10/16/21 00:43 Resp 16 10/16/21 08:29 BP 125/82 10/16/21 00:43 Pulse Ox 94 L 10/16/21 00:43 Intake & Output 10/15/21 10/16/21 10/16/21 18:59 06:59 18:59 Intake Total 350 200 Output Total 700 600 Balance -700 -250 200 Intake: Oral 350 200 Output: Urine 500 600 Post Void Residual 200 Other: # Voids 2 # Bowel Movements 0 - Exam Right lower extremity: Incision is clean, dry, and intact. The foam dressing is in good condition. There is minimal soft tissue swelling and ecchymosis surrounding the medial and lateral aspects of the incision. Calf is soft, no tenderness with palpation. Plantar flexion, dorsiflexion, EHL, FHL are intact. Sensory exam to light touch throughout the extremity is intact, dorsal pedis pulses 2+. Assessment and Plan Assessment: Postoperative day #2 status post right total knee arthroplasty Plan: Pain control, utilize tramadol 50 mg every 6 hours as needed. Discussed using [id number] Tylenol DVT prophylaxis, aspirin 81 mg twice a day Flomax 0.4 mg daily for 10-14 days, recommend follow-up with primary care doctor to discuss further management. Wound care instructions were discussed with patient, this including icing and elevating and showering Home physical therapy and nursing Medical recommendations Discharge planning: Discharge home today
--- NOTE | 2021-10-16 08:54 | P.DS ---
Providers Date of admission: 10/14/2021 Expected date of discharge: 10/16/21 Attending physician: Leonard Gage Consults: 10/14/21 20:28 Consult Physician Routine Consulting Provider: Cruz Villeda Reason/Comments: Medical management Do you want consulting provider notified?: Yes Primary care physician: Cruz Villeda Hospital Course: Date of admission: 10/14/2021 Date of discharge: 10/16/2021 Admission diagnosis: Status post right total knee arthroplasty Discharge diagnosis: Same Attending physician: Dr. Gage Surgical procedures: Right total knee arthroplasty Brief history: Patient is a 81-year-old female with a history of is a primary right knee osteoarthritis. At this point patient has failed conservative treatment measures and has opted to proceed with a elective right total knee arthroplasty. Hospital course: Details of patient's surgery can be found in operative report. Patient tolerated the procedure well and was subsequently transported to orthopedic floor. Patient's orthopeidc and medical care was provided daily. Patient had daily laboratory tests performed for evaluation of overall blood counts. Patient had daily physical therapy to include strengthening range of motion as well as education with walker ambulation. Patient was treated with Lovenox for their postoperative DVT prophylaxis during their inpatient stay. Patient was noted to have some urinary retention, this was monitored. She was started on Flomax 0.4 mg twice a day while inpatient. She'll be discharged on 0.4 mg daily, with plan for follow-up with internal medicine for further management. Patient reported satisfactory pain control with oral pain medications by postoperative day 0. Patient showed satisfactory progress with physical therapy. Patient moved steadily through the program and had no difficulty meeting the goals by postoperative day 1. Given patient's otherwise satisfactory course and having met physical therapy goals, plan is to discharge patient home on postoperative day 2. Discharge condition/disposition: Patient will be discharged home in stable condition. Discharge medications: Instructions are given on resumption of patient's normal daily medications per primary care recommendation, in addition patient will be prescribed tramadol 50 mg, Colace 100 mg, aspirin 81 mg, Zofran 8 mg, Flomax 0.4 mg Discharge instructions: 1. Wound care and infection precautions, keep incision dry and covered while showering, no lotions, creams, moisturizers. No soaking, tubs, pools, hottubs. Do not scrub over the incision. 2. Weight-bear as tolerated with walker / cane until follow-up. 3. Ice and elevate when necessary. Do not exceed 20 minutes per hour with ice pack. 4. Utilize compression sleeve until seen at first follow up appointment. 5. Visiting nursing care. 6. Home physical therapy including home CPM. 7. Pain meds and anticoagulants per prescription. 8. Pain medication has potential to cause constipation. Increase oral fluid and fiber intake. Contact primary care provider if you have not had a bowel movement within 48 hours after discharge 9. No anti-inflammatory medication until discussed at first post operative visit, this including Motrin, Aleve, Mobic, Diclofenac. 10. Follow up in office at 2 weeks postop with Noel Allison PA-C/Edwin Negrete 11. Follow up with your primary care doctor 7-10 days after discharge. 12. Contact [facility] with any questions, . Procedures: Right total knee arthroplasty Patient Condition at Discharge: Good Plan - Discharge Summary Discharge Rx Participant: Yes New Discharge Prescriptions: New ondansetron HCL [Zofran] 8 mg PO Q12HR PRN #21 tab PRN Reason: Nausea traMADol HCl [Ultram] 50 mg PO Q6H PRN #28 tab PRN Reason: Pain Tamsulosin [Flomax] 0.4 mg PO DAILY #14 cap Prochlorperazine Maleate 10 mg PO BID PRN 5 Days #10 tablet PRN Reason: Nausea Aspirin [Adult Low Dose Aspirin EC] 81 mg PO BID #60 tab Docusate [Colace] 100 mg PO DAILY #21 capsule No Action Diltiazem HCl [Diltiazem HCl 24Hr ER (Cd)] 240 mg PO HS Aspirin 81 mg PO DAILY Acetaminophen [Tylenol Arthritis] 650 mg PO Q8H PRN PRN Reason: Pain Multivitamins, Thera [Multivitamin (formulary)] 1 tab PO DAILY Discharge Medication List Acetaminophen [Tylenol Arthritis] 650 mg PO Q8H PRN 03/13/21 [History] Aspirin 81 mg PO DAILY 03/13/21 [History] Diltiazem HCl [Diltiazem HCl 24Hr ER (Cd)] 240 mg PO HS 03/13/21 [History] Multivitamins, Thera [Multivitamin (formulary)] 1 tab PO DAILY 03/13/21 [History] Aspirin [Adult Low Dose Aspirin EC] 81 mg PO BID #60 tab 10/14/21 [Rx] Docusate [Colace] 100 mg PO DAILY #21 capsule 10/14/21 [Rx] ondansetron HCL [Zofran] 8 mg PO Q12HR PRN #21 tab 10/14/21 [Rx] traMADol HCl [Ultram] 50 mg PO Q6H PRN #28 tab 10/15/21 [Rx] Prochlorperazine Maleate 10 mg PO BID PRN 5 Days #10 tablet 10/16/21 [Rx] Tamsulosin [Flomax] 0.4 mg PO DAILY #14 cap 10/16/21 [Rx] Follow up Appointment(s)/Referral(s): [facility],Equipment [NON-STAFF] - (*Please call [facility] once home to arrange delivery of the Continuous Passive Motion (CPM) machine. ) [facility], [NON-STAFF] - As Needed (PLEASE CONTACT THE NUMBER LISTED ABOVE IF YOU DO NOT HEAR [facility]M [facility] BY 11:00 A.M. ON 10/16/21.) Uzair Allison PAC [PHYSICIAN SERVER DEVELOPER] - 2 Weeks (Your follow-up appointment has been made for 10/30/21 at 3:40 p.m. If you need to change your appointment date or time, please call the number listed above. Thank you!) Patient Instructions/Handouts: *[facility] - Anesthesia Discharge Instructions, *[facility] - On-Q Pain Pump Discharge Instructions, How to Use an Incentive Spirometer (DC), Continuous Passive Motion Machine (DC), Knee Replacement (DC) Activity/Diet/Wound Care/Special Instructions: Orthopedic Discharge Instructions: 1. Wound care and infection precautions, [keep incision dry and covered while showering], no lotions, creams, moisturizers. No soaking, pools, hot tubs. Do not scrub over incision. 2. Weight-bear [as tolerated] with walker / cane until follow-up. 3. Ice and elevate when necessary. Do not exceed 20 minutes per hour with ice pack. 4. Utilize compression sleeve until seen at first follow up appointment. 5. Pain meds and anticoagulants per prescription. 6. Pain medication has potential to cause constipation. Increase oral fluid and fiber intake. Contact primary care provider if you have not had a bowel movement within 48 hours after discharge. 7. No anti-inflammatory medication until discussed at first post operative visit, this including Motrin, Aleve, Mobic, Diclofenac. 8. Follow up in office at 2 weeks postop with Noel Allison PA-C/Edwin Garcia PA-C 9. Follow up with your primary care doctor 7-10 days after discharge. 10. Contact [facility] with any questions, . Wound care instructions: 1. Okay to remove bandage on 10/21/2021. 2. After removal of the dressing, you are able to shower as you normally would. Discharge Disposition: HOME WITH HOME HEALTH SERVICES
[2021-10-16 08:56] VITALS: BP 115/71; PULSE 93; TEMP 97.8
[2021-10-16] MEDS ORDERED: TAMSULOSIN 0.4 MG CAP.ER.24H PO SCH (09:00)
== END 2021-10-16 11:07 | disposition home health service (06) ==
LOC: OR 08:07 → 4SSUR 11:59 → OR 10-16 11:07
PROVIDERS: ATTEND Orthopaedic Surgery
DX: M17.11 Unilateral primary osteoarthritis, right knee (principal); I10 Essential (primary) hypertension; Z90.710 Acquired absence of both cervix and uterus; R11.0 Nausea; Z98.890 Other specified postprocedural states; R12 Heartburn; Z85.3 Personal history of malignant neoplasm of breast; Z79.82 Long term (current) use of aspirin; Z79.891 Long term (current) use of opiate analgesic; Z79.899 Other long term (current) drug therapy; Z83.3 Family history of diabetes mellitus; Z82.49 Family history of ischemic heart disease and other diseases of the circulatory system; Z87.891 Personal history of nicotine dependence; Z92.3 Personal history of irradiation; Z88.5 Allergy status to narcotic agent
CPT/HCPCS: 97116; 97161; 64999; 64448; 76942; 88300; 73560; 27447; C1776; C1713 ×2; S0183 ×2; J0780; J0690 ×2; J2405 ×2; J1170; J2795; J1790

== ENCOUNTER → 2022-01-07 | Outpatient (CLI) | payer MEDICARE, OTHER ==
--- NOTE | 2022-01-07 11:32 | MM ---
Reason for Exam: Hx of breast cancer, conservation therapy. Last screening mammogram was performed 12 month(s) ago. Patient History: Menarche at age 12. First Full-Term at age 19. Hysterectomy at age 72. Postmenopausal. Breast cancer, age 63. Previous chest radiation therapy at age 63. Tamoxifen for 5 years from age 63 until age 68. 2004, Malignant Lumpectomy on the left side. 2003, Excisional Biopsy on the Left side. 2003, Radiation Therapy on the left side. Prior Study Comparison: 12/20/2018 Bilateral Diagnostic Mammogram, [facility]. 12/29/2019 Bilateral Diagnostic Mammogram, [facility]. 12/31/2020 Bilateral Diagnostic Mammogram, [facility]. Tissue Density: The breast tissue is heterogeneously dense. This may lower the sensitivity of mammography. Findings: Analyzed By CAD. Benign-appearing calcifications. Calcifications are stable. There are increasing loosely grouped calcifications in the central aspect of the right breast. Benign-appearing calcifications. Calcifications are stable. There are increasing loosely grouped calcifications in the central aspect of the right breast. Postsurgical change and distortion involving the posterior upper outer margin of the left breast is stable dating back to multiple prior exams. Skin thickening stable. Overall Assessment: Suspicious, BI-RAD 4 Management: Stereotactic Core Biopsy of the right breast. A clinical breast exam by your physician is recommended on an annual basis and results should be correlated with mammographic findings. This exam should not preclude additional follow-up of suspicious palpable abnormalities. Results were given to the patient verbally at the time of exam. Electronically signed and approved by: Arnoldo Matson M.D. Radiologis
== END | disposition home or self-care (01) ==
LOC: RADMAMWWP 10:42
PROVIDERS: ATTEND Family Medicine
DX: R92.8 Other abnormal and inconclusive findings on diagnostic imaging of breast (principal); R92.1 Mammographic calcification found on diagnostic imaging of breast
CPT/HCPCS: 77066

== ENCOUNTER → 2022-01-20 | Day surgery (SDC) | payer MEDICARE, OTHER ==
[2022-01-20 10:32] VITALS: RESP 12
[2022-01-20 11:34] VITALS: BP 125/83; PULSE 75; TEMP 98.4
== END ==
LOC: RADMAMWWP 09:35
PROVIDERS: ATTEND Surgery
DX: D24.1 Benign neoplasm of right breast (principal); N60.11 Diffuse cystic mastopathy of right breast; R92.0 Mammographic microcalcification found on diagnostic imaging of breast; N62 Hypertrophy of breast; Z85.3 Personal history of malignant neoplasm of breast; Z88.5 Allergy status to narcotic agent; Z79.82 Long term (current) use of aspirin; Z79.899 Other long term (current) drug therapy; Z87.891 Personal history of nicotine dependence
CPT/HCPCS: 88305; 19081; A4648; J2001

== ENCOUNTER → 2022-09-23 | Outpatient (CLI) | payer MEDICARE, OTHER ==
--- NOTE | 2022-09-23 12:16 | MM ---
Reason for Exam: Follow-up at short interval from prior study. Last screening mammogram was performed 9 month(s) ago. Patient History: Menarche at age 12. First Full-Term at age 19. Hysterectomy at age 72. Postmenopausal. Breast cancer, left, age 63. Previous chest radiation therapy at age 63. Previous Hyperplasia w/o Atypia at age 81. Tamoxifen for 5 years from age 63 until age 68. 01/20/2022, Benign MG stereo VAD BX RT on the right side. 2003, Malignant Lumpectomy on the left side. 2003, Excisional Biopsy on the Left side. 2003, Radiation Therapy on the left side. Prior Study Comparison: 12/29/2019 Bilateral Diagnostic Mammogram, [facility]. 12/31/2020 Bilateral Diagnostic Mammogram, [facility]. 01/07/2022 Bilateral MG diagnostic mammo w CAD FE, [facility]. Tissue Density: Right: There are scattered fibroglandular densities. Findings: Analyzed By CAD. Microclip marker appears to have migrated from the biopsy site. No suspicious calcifications seen. Overall Assessment: Benign, BI-RAD 2 Management: Screening Mammogram of both breasts in 6 months. A clinical breast exam by your physician is recommended on an annual basis and results should be correlated with mammographic findings. This exam should not preclude additional follow-up of suspicious palpable abnormalities. Results were given to the patient verbally at the time of exam. Electronically signed and approved by: Caio Pavon M.D. Radiologis
== END | disposition home or self-care (01) ==
LOC: RADMAMWWP 08:39
PROVIDERS: ATTEND Surgery
DX: R92.8 Other abnormal and inconclusive findings on diagnostic imaging of breast (principal); Z78.0 Asymptomatic menopausal state; Z85.3 Personal history of malignant neoplasm of breast; Z92.3 Personal history of irradiation
CPT/HCPCS: 77065; G0279; 77061

== ENCOUNTER → 2023-03-26 | Outpatient (CLI) | payer MEDICARE, OTHER ==
--- NOTE | 2023-03-26 10:18 | MM ---
Reason for Exam: Additional evaluation requested from prior study. Last mammogram was performed 1 year(s) and 3 month(s) ago. Patient History: Menarche at age 12. First Full-Term at age 19. Hysterectomy at age 72. Postmenopausal. Breast cancer, left, age 63. Previous chest radiation therapy at age 63. Previous Hyperplasia w/o Atypia at age 81. Tamoxifen for 5 years from age 63 until age 68. 01/20/2022, Benign MG stereo VAD BX RT on the right side. 2003, Malignant Lumpectomy on the left side. 2003, Excisional Biopsy on the Left side. 2003, Radiation Therapy on the left side. Prior Study Comparison: 11/12/2016 Bilateral Diagnostic Mammogram, [facility]. 12/17/2017 Bilateral Diagnostic Mammogram, [facility]. 12/20/2018 Bilateral Diagnostic Mammogram, [facility]. 12/29/2019 Bilateral Diagnostic Mammogram, [facility]. 12/31/2020 Bilateral Diagnostic Mammogram, [facility]. 01/07/2022 Bilateral MG diagnostic mammo w CAD FE, [facility]. 09/23/2022 Right MG 3D diag mammo w/cad RT, [facility]. Tissue Density: There are scattered fibroglandular densities. Findings: Analyzed By CAD. Postsurgical and posttreatment changes left breast. Microclip right breast from prior biopsy. No significant mass, suspicious microcalcification, or other discrete abnormality is seen. Scattered benign vascular calcifications noted. Overall Assessment: Benign, BI-RAD 2 Management: Screening Mammogram of both breasts in 1 year. . Results were given to the patient verbally at the time of exam. Patient should continue monthly self-breast exams. A clinical breast exam by your physician is recommended on an annual basis. This exam should not preclude additional follow-up of suspicious palpable abnormalities. Electronically signed and approved by: Zan Vincent M.D. Radiologist
== END | disposition home or self-care (01) ==
LOC: RADMAMWWP 09:26
PROVIDERS: ATTEND Family Medicine
DX: R92.8 Other abnormal and inconclusive findings on diagnostic imaging of breast (principal); Z85.3 Personal history of malignant neoplasm of breast; Z78.0 Asymptomatic menopausal state
CPT/HCPCS: 77066; G0279; 77062

== ENCOUNTER → 2024-03-28 | Outpatient (CLI) | payer MEDICARE ==
--- NOTE | 2024-03-29 14:00 | MM ---
Reason for Exam: Follow-up at short interval from prior study. Last screening mammogram was performed 12 month(s) ago. Patient History: Menarche at age 12. First Full-Term at age 19. Hysterectomy at age 72. Postmenopausal. Breast cancer, left, age 63. Previous chest radiation therapy at age 63. Previous Hyperplasia w/o Atypia at age 81. Tamoxifen for 5 years from age 63 until age 68. 01/20/2022, Benign MG stereo VAD BX RT on the right side. 2003, Malignant Lumpectomy on the left side. 2003, Excisional Biopsy on the Left side. 2003, Radiation Therapy on the left side. Prior Study Comparison: 12/17/2017 Bilateral Diagnostic Mammogram, [facility]. 12/29/2019 Bilateral Diagnostic Mammogram, [facility]. 01/07/2022 Bilateral MG diagnostic mammo w CAD FE, [facility]. 09/23/2022 Right MG 3D diag mammo w/cad RT, [facility]. 03/26/2023 Bilateral MG 3D diag mammo w/cad FE, [facility]. Tissue Density: The breasts are heterogeneously dense, which may obscure small masses. Findings: Analyzed By CAD. Stable lumpectomy changes left breast. No evidence for new mass or suspicious cluster of microcalcifications. Benign calcifications noted bilaterally. Overall Assessment: Benign, BI-RAD 2 Management: Diagnostic Mammogram of both breasts in 1 year. . Results were given to the patient verbally at the time of exam. Patient should continue monthly self-breast exams. A clinical breast exam by your physician is recommended on an annual basis. This exam should not preclude additional follow-up of suspicious palpable abnormalities. Note on Urmila scores and lifetime risk: 1. A Urmila score greater than 3% is considered moderate risk. If this is the case, consider specialist referral to assess eligibility for a risk reducing agent. 2. If overall lifetime risk for the development of breast cancer is 20% or higher, the patient may qualify for future screening with alternating mammogram and breast MRI. [facility], , 03/29/2024 1:57 PM. Electronically signed and approved by: Caio Pavon M.D. Radiologis
== END | disposition home or self-care (01) ==
LOC: RADMAMWWP 07:21
PROVIDERS: ATTEND Family Medicine
DX: Z85.3 Personal history of malignant neoplasm of breast
CPT/HCPCS: 77062; 77066

== ENCOUNTER → 2025-01-09 | Outpatient (CLI) | payer MEDICARE ==
--- NOTE | 2025-01-10 09:50 | XR ---
EXAMINATION TYPE: XR chest 2V DATE OF EXAM: 01/10/2025 9:44 AM COMPARISON: None CLINICAL INDICATION: Female, 84 years old with history of R06.02 SHORTNESS OF BREATH, , TECHNIQUE: Frontal and lateral views FINDINGS: Heart normal size. Tortuous/ectatic thoracic aorta. Mild interstitial prominence is a chronic appeara nce. Hazy lung densities relating to overlying soft tissue. No consolidation or pleural effusion. Jasmine gical clips projecting over the left breast. Degenerative change both shoulders. IMPRESSION: No definite acute process. [facility], Workstation: [email or web address], 01/10/2025 9:47 AM
== END | disposition home or self-care (01) ==
LOC: RADXRMAIN 14:56
PROVIDERS: ATTEND Family Medicine
DX: R06.02 Shortness of breath (principal)
CPT/HCPCS: 71046